=== PATIENT | male | born 1950 | race Hispanic/Latino ===

== ENCOUNTER 2019-07-24 11:39 | Emergency (ER) | payer MEDICARE ==
[2019-07-24 11:47] VITALS: BP 177/86
--- NOTE | 2019-07-24 11:50 | Event Note ---
ED Screening Note ED Screening Note: tinnitus in the left ear that began 6 weeks ago states that it is intermittent states he has dizziness feels like the room is spinning no vision changes no numbness or weakness PMHx none allergy: penicillin +smoker This initial assessment/diagnostic orders/clinical plan/treatment(s) is/are subject to change based on patients health status, clinical progression and re- assessment by fellow clinical providers in the ED. Further treatment and workup at subsequent clinical providers discretion. Patient/guardian urged not to elope from the ED as their condition may be serious if not clinically assessed and managed. Initial orders include: labs
[2019-07-24 12:47] LABS: Basophils # (Auto) 0.1 K/mm3 (0.0-0.1); Basophils % (Auto) 0.8 % (0.0-1.8); Eosinophils # (Auto) 0.3 K/mm3 (0.0-0.4); Eosinophils % (Auto) 3.6 % (0.0-4.3); Hematocrit 44.1 % (35.5-45.6); Hemoglobin 15.2 gm/dl (11.8-15.2); Lymphocytes # (Auto) 1.4 K/mm3 (1.2-5.4); Lymphocytes % (Auto) 18.3 % (13.4-35.0); Mean Corpuscular HGB Conc 34 % (32-34); Mean Corpuscular Volume 98 fl (84-94); Monocytes # (Auto) 0.8 K/mm3 (0.0-0.8); Monocytes % (Auto) 10.5 % (0.0-7.3); Platelet Count 218 K/mm3 (140-440); Red Blood Count 4.51 M/mm3 (3.65-5.03); Red Cell Distribution Width 13.2 % (13.2-15.2)
--- NOTE | 2019-07-24 12:57 | Cat Scan Report ---
CT HEAD WITHOUT CONTRAST INDICATION / CLINICAL INFORMATION: tinnitus, dizziness. TECHNIQUE: All CT scans at this location are performed using CT dose reduction for ALARA by means of automated e xposure control. COMPARISON: None available. FINDINGS: HEMORRHAGE: No evidence of intracranial hemorrhage or extra-axial fluid collection. EXTRA-AXIAL SPACES: Cortical sulci and sylvian fissures are mildly enlarged reflecting a degree of pa renchymal volume loss which is within normal limits for the patient's age 69. Basilar cisterns have a n unremarkable appearance. VENTRICULAR SYSTEM: There is mild dilatation of the atria and occipital horns of the lateral ventricl es likely reflection of mild age-related parenchymal volume loss. The third and lateral ventricles ar e otherwise normal in size and configuration. CEREBRAL PARENCHYMA: Mild periventricular and deep whit e matter lucency is observed. This is probably secondary to microvascular ischemic change. There is n o indication of recent infarction. No areas of encephalomalacia are identified. MIDLINE SHIFT OR HERNIATION: There is no mass effect. CEREBELLUM / BRAINSTEM: Brainstem and cerebellum have an unremarkable appearance. INTRACRANIAL VESSELS:Calcified atherosclerotic plaque is present along the course of the cavernous se gments of both internal carotid arteries. Similar findings are seen at the distal vertebral arteries. ORBITS: Patient is status post bilateral cataract surgery. The orbits have an otherwise unremarkable appearance. SOFT TISSUES of HEAD: No significant abnormality. CALVARIUM: A well-circumscribed area of increased attenuation is seen in the frontal bone extending i nto the right superior orbital rim. This likely represents a bone island. Calvarium has an otherwise unremarkable appearance. PARANASAL SINUSES / MASTOID AIR CELLS: Retention cysts or polyps are present at the base of the right maxillary sinus. Mild mucosal thickening is seen within several ethmoid air cells bilaterally. Paran mayelin sinuses are otherwise free from inflammatory mucosal disease. Mastoid air cells are normally pne umatized. ADDITIONAL FINDINGS: None. IMPRESSION: 1. Head CT without contrast is within normal limits for the patient's age of 69 years. Signer Name: John Guillen MD Signed: 07/24/2019 12:53 PM Workstation Name: [id number]
[2019-07-24 13:02] LABS: Alanine Aminotransferase 13 units/L (7-56); Albumin 4.5 g/dL (3.9-5); BUN/Creatinine Ratio 14; Blood Urea Nitrogen 10 mg/dL (9-20); Hemolysis Index 17
--- NOTE | 2019-07-24 13:10 | Emergency Department Report ---
ED Dizziness HPI - General Chief Complaint: Dizziness Stated Complaint: RINGING IN EAR/DIZZY Time Seen by Provider: 07/24/19 11:48 Source: patient Mode of arrival: Ambulatory Limitations: No Limitations - History of Present Illness Initial Comments: Patient is 69 years old male with no significant past medical history except for cataract surgery. Patient presented to the ER complaining of dizziness for the last 6 week. Patient stated that he feel room is spinning. Symptoms worse when changing position and improved with remaining still. Patient denied any headache. Patient reported left ear pain. Patient denied any weakness, numbness or tingling sensation. MD Complaint: dizziness -: week(s) (6) Timing: gradual onset Description: sense of movement, "room spinning" History of Same: Yes History of Trauma: No Improves With: remaining still Worsens With: position Associated Symptoms: denies other symptoms - Related Data Allergies Allergy/AdvReac Type Severity Reaction Status Date / Time Penicillins Allergy Rash Verified 07/24/19 11:41 ED Review of Systems ROS: Stated complaint: RINGING IN EAR/DIZZY Other details as noted in HPI Comment: All other systems reviewed and negative Constitutional: denies: chills, fever ENT: ear pain Respiratory: denies: cough, shortness of breath, SOB with exertion, wheezing Cardiovascular: denies: chest pain Gastrointestinal: denies: abdominal pain, nausea, vomiting Musculoskeletal: denies: back pain ED Past Medical Hx - Past Medical History Previous Medical History?: Yes Additional medical history: Cataracts - Surgical History Past Surgical History?: Yes Additional Surgical History: Cataract surgery 2019 - Social History Smoking Status: Current Every Day Smoker Substance Use Type: Alcohol ED Physical Exam - General Limitations: No Limitations General appearance: alert, in no apparent distress - Head Head exam: Present: atraumatic, normocephalic, normal inspection - Eye Eye exam: Present: normal appearance - ENT ENT exam: Present: other (serous otitis media left ear) - Neck Neck exam: Present: normal inspection, full ROM. Absent: tenderness, meningismus, lymphadenopathy, thyromegaly - Respiratory Respiratory exam: Present: normal lung sounds bilaterally - Cardiovascular Cardiovascular Exam: Present: regular rate, normal rhythm, normal heart sounds - GI/Abdominal GI/Abdominal exam: Present: soft, normal bowel sounds. Absent: distended, tenderness, guarding, rebound, rigid, organomegaly, mass, bruit, pulsatile mass, hernia - Extremities Exam Extremities exam: Present: normal inspection, full ROM, normal capillary refill. Absent: calf tenderness - Back Exam Back exam: Present: normal inspection, full ROM. Absent: CVA tenderness (R), CVA tenderness (L), muscle spasm, paraspinal tenderness, vertebral tenderness - Neurological Exam Neurological exam: Present: alert, oriented X3, CN II-XII intact, normal gait, reflexes normal. Absent: abnormal gait, motor sensory deficit - Skin Skin exam: Present: warm, intact, normal color ED Course Vital Signs 07/24/19 11:44 Temperature 97.7 F Pulse Rate 67 Respiratory 20 Rate Blood Pressure 177/86 O2 Sat by Pulse 99 Oximetry ED Medical Decision Making - Lab Data Result diagrams: 07/24/19 12:26 07/24/19 12:26 - EKG Data -: EKG Interpreted by [facility] EKG shows normal: sinus rhythm Rate: normal - EKG Data Interpretation: no acute changes - Radiology Data Radiology results: report reviewed Referring Physician: ISABELLA MARTINEZ Patient Name: CHAD LOVE Date of : 1950 Sex: Male Report Date: 2019-07-24 Report Status: Finalized Findings [facility] [address] [place] [address] Cat Scan Report Signed Patient: CHAD LVOE MR#: [id number] : 1950 Acct:[id number] Age/Sex: 69 / M ADM Date: 07/24/19 Loc: ED Attending Dr: Ordering Physician: ATA TORRES Date of Service: 07/24/19 Procedure(s): CT head/brain wo con Accession Number(s): [id number] cc: ATA TORRES CT HEAD WITHOUT CONTRAST INDICATION / CLINICAL INFORMATION: tinnitus, dizziness. TECHNIQUE: All CT scans at this location are performed using CT dose reduction for ALARA by means of automated exposure control. COMPARISON: None available. FINDINGS: HEMORRHAGE: No evidence of intracranial hemorrhage or extra-axial fluid collection. EXTRA-AXIAL SPACES: Cortical sulci and sylvian fissures are mildly enlarged re flecting a degree of parenchymal volume loss which is within normal limits for the patient's age 69. Basilar cisterns have an unremarkable appearance. VENTRICULAR SYSTEM: There is mild dilatation of the atria and occipital horns of the lateral ventricles likely reflection of mild age-related parenchymal volume loss. The third and lateral ventricles are otherwise normal in size and configuration. CEREBRAL PARENCHYMA: Mild periventricular and deep white matter lucency is observed. This is probably secondary to microvascular ischemic change. There is no indication of recent infarction. No areas of encephalomalacia are identified. MIDLINE SHIFT OR HERNIATION: There is no mass effect. CEREBELLUM / BRAINSTEM: Brainstem and cerebellum have an unremarkable appearance. INTRACRANIAL VESSELS:Calcified atherosclerotic plaque is present along the course of the cavernous segments of both internal carotid arteries. Similar findings are seen at the distal vertebral arteries. ORBITS: Patient is status post bilateral cataract surgery. The orbits have an otherwise unremarkable appearance. SOFT TISSUES of HEAD: No significant abnormality. CALVARIUM: A well-circumscribed area of increased attenuation is seen in the frontal bone extending into the right superior orbital rim. This likely represents a bone island. Calvarium has an otherwise unremarkable appearance. PARANASAL SINUSES / MASTOID AIR CELLS: Retention cysts or polyps are present at the base of the right maxillary sinus. Mild mucosal thickening is seen within several ethmoid air cells bilaterally. Paranasal sinuses are otherwise free from inflammatory mucosal disease. Mastoid air cells are normally pneumatized. ADDITIONAL FINDINGS: None. IMPRESSION: 1. Head CT without contrast is within normal limits for the patient's age of 69 years. Signer Name: John Guillen MD Signed: 07/24/2019 12:53 PM Workstation Name: [id number] Transcribed By: Dictated By: John Guillen MD Electronically Authenticated By: John Guillen MD Signed Date/Time: 07/24/19 1253 DD/ 1248 TD/TT: - Medical Decision Making Patient is 69 years old male with no significant past medical history except for cataract surgery. Patient presented to the ER complaining of dizziness for the last 6 week. Patient stated that he feel room is spinning. Symptoms worse when changing position and improved with remaining still. Patient denied any headache. Patient reported left ear pain. Patient denied any weakness, numbness or tingling sensation. EKG is unremarkable. Labs reviewed and is unremarkable. CT brain is negative for acute finding. Patient's symptoms is consistent with serous otitis media and benign positional vertigo. Patient given meclizine and prednisone. Patient advised to follow-up with his primary care physician and to return to the ER if symptoms are not improved. Critical care attestation.: If time is entered above; I have spent that time in minutes in the direct care of this critically ill patient, excluding procedure time. ED Disposition Clinical Impression: Benign positional vertigo, Serous otitis media, Dizziness Disposition: TO HOME OR SELFCARE Is pt being admited?: No Condition: Stable Instructions: Dizziness (ED), Benign Paroxysmal Positional Vertigo (ED) Referrals: [facility] [Provider Group] - 3-5 Days
== END 2019-07-24 14:12 | disposition home or self-care (01) ==
LOC: ED 11:39
DX: H65.92 Unspecified nonsuppurative otitis media, left ear (principal); H81.12 Benign paroxysmal vertigo, left ear; R42 Dizziness and giddiness; Z98.890 Other specified postprocedural states; F17.200 Nicotine dependence, unspecified, uncomplicated; Z88.1 Allergy status to other antibiotic agents
CPT/HCPCS: 36415; 70450; 80053; 83735; 84100; 85025; 93005; 93010